=== PATIENT | female | born 1950 | race Caucasian/White ===

== ENCOUNTER → 2020-06-26 08:54 | Outpatient (CLI) | payer OTHER, SELFPAY ==
[2020-06-27 21:28] LABS: COVID19 Sendout Not Detected (Not Detect)
== END ==
PROVIDERS: PCP Internal Medicine; Visit Provider Physician Assistant
DX: Z01.812 Encounter for preprocedural laboratory examination (principal)
CPT/HCPCS: 87635

== ENCOUNTER 2020-06-29 07:42 | Day surgery (SDC) | payer OTHER, SELFPAY ==
[2020-06-29] VITALS (8 sets, daily range): BP systolic 108–147; BP diastolic 56–65; PULSE 66–85; RESP 11–16; TEMP 35.9–36.7; O2SAT 98–100; BMI 21.9
--- NOTE | 2020-06-29 | PATH_ITS ---
[facility] Accession Number: [id number] . 01 Material submitted: . PART A: colon - POLYP NEAR HEPATIC FLEXURE PART B: colon - ASCENDING POLYP NEAR CECUM . 02 Diagnosis: A. Colon, Polyp Near Hepatic Flexure, Biopsy: Tubular adenoma. . B. Ascending Colon, Polyp Near Cecum, Biopsy: Benign lymphoid aggregate. MRV 07/02/2020 1443 Local . 02 Electronically signed: . Tiera Brown MD, Pathologist NPI- [id number] . 01 Gross description: . A. Received in formalin, labeled polyp near hepatic flexure, and consists of a 0.5 x 0.4 x 0.3 cm pritchard fragment of soft tissue, which is entirely submitted in cassette A1. B. Received in formalin, labeled polyp ascending colon near cecum, and consists of two pritchard fragments of soft tissue measuring 0.5 x 0.4 x 0.2 cm in aggregate. The specimen is entirely submitted in cassette B1. ([id number]) /MRV 06/30/2020 1235 Local . 02 Pathologist provided ICD-10: D12.3 . 02 CPT . 716069, 132444 Performed at: 01 [facility] [address], [place], [place] [id number] MD Holland Knox MD Phone: [phone] Performed at: 02 [facility] [address] [place], [place] [id number] MD Tiera Brown MD Phone: [phone]
[2020-06-29] MEDS: LACTATED RINGERS 1,000 ML 200 ML IV (08:52)
--- NOTE | 2020-06-29 10:00 | PM.PREOP ---
Pre-operative Note COVID-19 COVID-19 status: Negative Result date/Date tested (Pos, Neg/Pending): 06/26/20 Interval Note History & Physical reviewed/Exam performed by Physician: Yes Changes to H&P: No ASA Class (for procedural sedation): II
[2020-06-29] MEDS: LIDOCAINE 4% SOLN 50 ML 20 ML TOP (10:08)
[2020-06-29] MEDS: fentaNYL 250 MCG/5 ML INJ IV (10:35)
[2020-06-29] MEDS: MIDAZOLAM 5 MG/5 ML VIAL IV (10:36)
--- NOTE | 2020-06-29 10:51 | P.OP.ENDO_ITS ---
Operative Date/Time/Diagnoses Date of procedure: 06/29/20 Time of procedure: 10:51 Pre-op diagnosis: Black bowel movements. Screening for colon cancer. Post-op diagnosis: same Procedure & Clinicians Study performed: EGD and colonoscopy with cold biopsy Same procedure as scheduled: Yes Indications: Diagnostic/screening Surgeon: Foster Espitia Procedure Notes SCOAP/Timeout: Performed Procedure in detail: The patient had topical anesthetic applied to oropharynx. She was placed in left lateral decubitus position and underwent IV sedation directed by the surgeon consisting of fentanyl and Versed. A bite block was ins erted and the scope was advanced through it into the esophagus. The esophagus was unremarkable. GE junction was noted at 41 cm from the incisors. The stomach insufflated well. There were no lesions seen in the body, antrum or at the incisura. The pyloric channel was patent. The duodenum was unremarkable to the 4th part. The scope was brought back into the stomach and retroflexed. The proximal stomach normal in appearance. No evidence for hiatal hernia from above or below. The scope was straightened and brought out through the esophagus again. No lesions were seen. The scope was removed and the patient tolerated the procedure well. The patient was left in the left lateral decubitus position and underwent additional IV sedation directed by the surgeon consisting of fentanyl and V ersed. Digital exam was unremarkable. The scope was inserted and advanced through the rectum into the sigmoid, descending, transverse, and ascending colon. A small polyp was removed at the hepatic flexure. The the patient had to be repositioned pressure applied a stiffener inserted to get to the ascending colon.. The cecum was reached identified by the ileocecal valve and the appendiceal opening. The scope was gradually brought out. There was a small polyp removed at the ascending colon near the cecum. No other Polyps were found. The scope ultimately was attempted to be retroflexed in the rectum. I was unsuccessful so I slowly brought the scope through the anal verge. It appeared that the patient had some internal hemorrhoids without ulceration. The scope was removed and the patient tolerated the procedure well. The prep was good. Scope withdrawal time: 6-1/2 minutes Findings: polyp (Two small polyps in the colon) and other findings (Normal upper endoscopy) Specimen(s): other (Colon polyps) Complications: none Post-procedure Recommendations: Colonscopy in 5 years (Unless the polyps are not adenomatous. In that case 10 years would be more appropriate.) Follow up: as needed Disposition: PACU
== END 2020-06-29 11:55 | disposition home or self-care (01) ==
PROVIDERS: PCP Internal Medicine; Referring Provider Internal Medicine; Visit Provider Specialist
PROC: 0DJ08ZZ Inspection of Upper Intestinal Tract, Via Natural or Artificial Opening Endoscopic (ICD-10-PCS; CPT 43235; principal; 2020-06-29 09:15)
PROC: 0DJD8ZZ Inspection of Lower Intestinal Tract, Via Natural or Artificial Opening Endoscopic (ICD-10-PCS; CPT 45378; 2020-06-29 09:15)
DX: R19.5 Other fecal abnormalities (principal); K21.9 Gastro-esophageal reflux disease without esophagitis; I25.10 Atherosclerotic heart disease of native coronary artery without angina pectoris; Z79.01 Long term (current) use of anticoagulants; E11.9 Type 2 diabetes mellitus without complications; I10 Essential (primary) hypertension; E03.9 Hypothyroidism, unspecified; Z79.4 Long term (current) use of insulin; K64.8 Other hemorrhoids; D12.3 Benign neoplasm of transverse colon
CPT/HCPCS: 45380; 43235; J2250; J3010